=== PATIENT | male | born 1995 | race Hispanic/Latino ===

== ENCOUNTER 2021-04-29 18:05 | Emergency (ER) | payer OTHER ==
[~2021-04-29] VITALS: Ht 160 cm; Wt 88.5 kg
[2021-04-29 18:06] VITALS: BP 136/75
[2021-04-29] MEDS ORDERED: KETOROLAC 60 MG VIAL (30MG/ML) IM ONE (18:30)
[2021-04-29] MEDS ORDERED: IBUP-1552 PO (19:03)
== END 2021-04-29 19:08 | disposition home or self-care (01) ==
LOC: EDH 18:05
DX: S16.1XXA Strain of muscle, fascia and tendon at neck level, initial encounter (principal); Z88.1 Allergy status to other antibiotic agents; Z88.0 Allergy status to penicillin; Z79.1 Long term (current) use of non-steroidal anti-inflammatories (NSAID); V49.49XA Driver injured in collision with other motor vehicles in traffic accident, initial encounter; Y93.89 Activity, other specified; Y92.89 Other specified places as the place of occurrence of the external cause; Y99.8 Other external cause status
CPT/HCPCS: 96372; 99283; 72040; J1885

== ENCOUNTER 2021-05-13 06:50 | Emergency (ER) | payer OTHER ==
[~2021-05-13] VITALS: Ht 160 cm; Wt 83.9 kg
[~2021-05-13 06:50] MED LIST: IBUP-1552 PO
[2021-05-13] MEDS ORDERED: ACETAMINOPHEN 325 MG TAB ONE (07:20)
[2021-05-13 07:25] LABS: BASOPHILS % (AUTO) 0.2 % (0.0-5.0); EOSINOPHILS % (AUTO) 0.2 % (0.0-8.0); HEMATOCRIT 46.1 % (42-54); MEAN CORPUSCULAR HEMOGLOBIN 29.1 pg (27.0-33.0); MEAN CORPUSCULAR HGB CONC 33.8 g/dL (32.0-36.0); MEAN CORPUSCULAR VOLUME 85.8 fL (79-99); NEUTROPHILS % (AUTO) 91.2 % (40.0-77.0); PLATELET COUNT (AUTO) 290 K/uL (130-400); RED BLOOD CELL COUNT(AUTO) 5.37 MIL/uL (4.50-6.20); RED CELL DISTRIBUTION WIDTH 12.6 % (11.0-15.5); WHITE BLOOD COUNT (AUTO) 12.9 K/uL (4.8-10.8)
[2021-05-13] MEDS ORDERED: ONDANSETRON 4MG INJ ONE (07:25)
[2021-05-13] MEDS ORDERED: ACETAMINOPHEN 500 MG TABLET PO SCH (07:30)
[2021-05-13] MEDS ORDERED: ONDANSETRON 4MG INJ IVP SCH (07:30)
[2021-05-13] MEDS ORDERED: 0.9%NACL 1000ML 1,000 ML IV SCH (07:30)
[2021-05-13 07:38] LABS: ALBUMIN 4.3 g/dL (3.5-5.0); BILIRUBIN,TOTAL 0.8 mg/dL (0.2-1.0); POTASSIUM 3.9 mmol/L (3.5-5.1); TOTAL PROTEIN, SERUM 8.1 g/dL (6.0-8.3)
[2021-05-13 07:46] LABS: APPEARANCE,URINE Clear (CLEAR); BILIRUBIN,URINE Negative (NEGATIVE); COLOR,URINE Yellow (YELLOW); GLUCOSE, URINE (UA) Negative (NEGATIVE); KETONES,URINE Negative (NEGATIVE); LEUKOCYTE ESTERASE ,URINE Negative (NEGATIVE); NITRATE,URINE Negative (NEGATIVE); OCCULT BLOOD,URINE Negative (NEGATIVE); PH,URINE 8.5 (5.0-8.0); PROTEIN,URINE Negative (NEGATIVE)
[2021-05-13 07:53] LABS: BACTERIA,URINE None Seen /HPF (None Seen); RBC,URINE 0-1 /HPF (0-1); SQUAMOUS EPITHELIAL CELL,UR None Seen /HPF (0-2); WBC,URINE None Seen /HPF (0-1)
[2021-05-13] MEDS ORDERED: PROMETHAZINE HCL 25 MG/ML 1ML AMPULE IM SCH (08:00)
[2021-05-13] MEDS ORDERED: PROM6.254 PO (08:25)
[2021-05-13] MEDS ORDERED: ACET-66 PO (08:25)
[2021-05-13 08:26] VITALS: BP 109/51
== END 2021-05-13 08:47 | disposition home or self-care (01) ==
LOC: EDH 06:50
DX: A08.4 Viral intestinal infection, unspecified (principal); E86.0 Dehydration; Z20.822 Contact with and (suspected) exposure to COVID-19; Z88.0 Allergy status to penicillin; Z88.1 Allergy status to other antibiotic agents; Z79.1 Long term (current) use of non-steroidal anti-inflammatories (NSAID); Z79.899 Other long term (current) drug therapy
CPT/HCPCS: 36415; 80053; 81001; 85025; 87088; 87635; 87804 ×2; 87880; 96361; 96372; 96374; 99284; C9803; J2405; J2550

== ENCOUNTER → 2025-01-06 | Outpatient (CLI) | payer OTHER ==
[~2025-01-06] MED LIST changes: +ACET-66 PO; +PROM6.2527 PO
--- NOTE | 2025-01-06 16:52 | HMCIMG ---
MR SHOULDER RIGHT WO HISTORY: Fracture contusion COMPARISON: None TECHNIQUE: MRI of the right shoulder was performed utilizing multiple pulse sequences in axial, coronal and sagittal planes. Patient was not given contrast through intravenous route. FINDINGS: No abnormal signal intensity is seen of the visualized bony structure. Hypertrophic degenerative changes are seen of the acromioclavicular joint. There is downward sloping of acromion in a medial to lateral direction encroaching upon the rotator cuff tendon and muscles. There is rotator cuff tendinosis. If there is clinical suspicion for complete rotator cuff tendon tear, MRI arthrogram may be helpful. The glenoid labrum is intact. Bicipital tendon is seen within its groove. No appreciable amount of joint effusion is seen. IMPRESSION: 1. Rotator cuff tendinosis.
== END | disposition home or self-care (01) ==
LOC: RAH 13:08
PROVIDERS: ATTEND Family Medicine Adult Medicine
DX: S40.011A Contusion of right shoulder, initial encounter (principal); M19.011 Primary osteoarthritis, right shoulder; M67.813 Other specified disorders of tendon, right shoulder; X58.XXXA Exposure to other specified factors, initial encounter; Y93.89 Activity, other specified; Y92.89 Other specified places as the place of occurrence of the external cause; Y99.8 Other external cause status
CPT/HCPCS: 73221